=== PATIENT | female | born 1950 | race Caucasian/White ===

== ENCOUNTER 2023-10-25 07:46 | Outpatient (OUT) | payer MEDICARE, SELFPAY ==
--- NOTE | 2023-10-25 07:49 | XR_ITS ---
[address] [address] Patient Name: ROMMEL MARIEE MRN: [id number] date: 1950 Sex: F Assigned Patient Location: [facility] Current Patient Location: [facility] Accession/Order Number: [id number] Exam Date: 10/25/2023 08:05 Report Date: 10/25/2023 08:33 At the request of: VENTURA PEARSON Procedure: XR DEXA axial skeleton EXAMINATION: XR DEXA axial skeleton, 10/25/2023 8:05 AM EST HISTORY: Osteopenia M85.88 COMPARISON: 2020, 2016, 2007. TECHNIQUE: Dual-energy X-ray absorptiometry (DEXA) bone density study performed for the axial skeleton. HISTORY: Osteopenia M85.88 FINDINGS: Bone mineral density AP spine L1-L4 measures 0.940 g/sq cm. T score -2.0. WHO classification: Osteopenia. Bone mineral density of the femurs measures 0.912 g/sq cm. T score -0.8. Endotracheal classification: Normal XR/XR DEXA axial skeleton IMPRESSION: Osteopenia. Moderate fracture risk Electronically authenticated by: EMMA MOSLEY Date: 10/25/2023 08:33
--- NOTE | 2023-10-25 08:15 | MM_ITS ---
Patient Name: ROMMEL MARIEE MR#: [id number] : 1950 Exam Date: 10/25/2023 Ordering Doctor: DR Sunday Hayes D.O. RADIOLOGY REPORT PROCEDURE: MM TOMOSYNTHESIS SCREENING BI COMPARISON: MG MAMM SCREEN 3D NATALIE CAD, 10/23/2021. MG MAMM SCREEN 3D NATALIE CAD, 10/24/2022. INDICATIONS: Screening Calculator Name NCI Breast Cancer Risk Assessment Tool 5 Year Breast Cancer Risk 1.40% Lifetime Breast Cancer Risk 4.00% Personal Breast Cancer No Personal Ovarian Cancer No Treatments None Family Cancers None LOCATION: [facility] BREAST COMPOSITION: Scattered areas fibroglandular density. FINDINGS: DIAGNOSTIC CATEGORY 1--NEGATIVE. NO CHANGE FROM COMPARISON ASSESSMENT. RIGHT BREAST: No significant suspicious finding. LEFT BREAST: No significant suspicious finding. RECOMMENDATIONS: ROUTINE MAMMOGRAM AND CLINICAL EVALUATION IN 12 MONTHS. PLEASE NOTE: A NORMAL MAMMOGRAM DOES NOT EXCLUDE THE POSSIBILITY OF BREAST CANCER. A CLINICALLY SUSPICIOUS PALPABLE LUMP SHOULD BE BIOPSIED. Dictated by: Xavier Dukes MD on 10/25/2023 at 08:38 Approved by: Xavier Dukes MD on 10/25/2023 at 08:39
== END 2023-10-25 07:47 | disposition home or self-care (01) ==
LOC: MAMMO 07:46
PROVIDERS: PCP Internal Medicine; Visit Provider Internal Medicine
DX: Z12.31 Encounter for screening mammogram for malignant neoplasm of breast (principal); M85.88 Other specified disorders of bone density and structure, other site; M85.80 Other specified disorders of bone density and structure, unspecified site
CPT/HCPCS: 77063; 77067; 77080

== ENCOUNTER 2024-10-26 09:02 | Outpatient (OUT) | payer MEDICARE, SELFPAY ==
--- NOTE | 2024-10-26 09:06 | MM_ITS ---
Patient Name: ROMMEL MARIEE MR#: [id number] : 1950 Exam Date: 10/26/2024 Ordering Doctor: DR Sunday Hayes D.O. RADIOLOGY REPORT PROCEDURE: MM TOMOSYNTHESIS SCREENING BI COMPARISON: MM TOMOSYNTHESIS SCREENING BI, 10/25/2023. MG MAMM SCREEN 3D NATALIE CAD, 10/24/2022. INDICATIONS: Screening Calculator Name NCI Breast Cancer Risk Assessment Tool 5 Year Breast Cancer Risk 1.40% Lifetime Breast Cancer Risk 3.80% Personal Breast Cancer No Personal Ovarian Cancer No Treatments None Family Cancers None LOCATION: [facility] BREAST COMPOSITION: There are scattered areas of fibroglandular density. FINDINGS: DIAGNOSTIC CATEGORY 1--NEGATIVE. NO CHANGE FROM COMPARISON ASSESSMENT. Scattered benign-appearing calcifications are present. Scattered benign-appearing lymph nodes are present. RIGHT BREAST: No significant suspicious finding. LEFT BREAST: No significant suspicious finding. RECOMMENDATIONS: ROUTINE MAMMOGRAM AND CLINICAL EVALUATION IN 12 MONTHS. PLEASE NOTE: A NORMAL MAMMOGRAM DOES NOT EXCLUDE THE POSSIBILITY OF BREAST CANCER. A CLINICALLY SUSPICIOUS PALPABLE LUMP SHOULD BE BIOPSIED. Dictated by: Xavier Dukes MD on 10/26/2024 at 10:21 Approved by: Xavier Dukes MD on 10/26/2024 at 10:22
--- OUTSIDE RECORDS SUMMARY | 2024-10-26 09:18 | XMS_ITS | CCD ---
Author Organization [facility] Care Team Providers Care Certified Physician'S Assistant Name Role Phone Sunday Hayes DO Primary Care Provider SUNDAY HAYES Primary Care Unavailable ANTONIO IQBAL Attending Unavailable ANTONIO IQBAL Admitting Unavailable MISC, DR ALVAREZ Attending Unavailable MISC, DR ALVAREZ Consulting Unavailable LILI, DR WHITEHEAD Primary Care Unavailable MISC, DR ALVAREZ Admitting Unavailable REQUEST, DR BURRELL LISTED Consulting Unavaila ble LILI, DR WHITEHEAD Attending Unavailable LILI, DR WHITEHEAD Consulting Unavailable LILI, DR WHITEHEAD Primary Care Unavailable LILI, DR WHITEHEAD Admitting Unavailable ZIEBER, DR OLEGARIO Flores Consulting Unavailable Sunday Hayes Unavailable Medications Current Medications Medication Drug Class(es) Dates Sig (Normalized) Sig (Original) acetaminophen 325 mg / HYDROcodone bitartrate 5 mg oral tablet (1 source) Opioid Agonist Start: 08-20-2022 End: 08-23-2022 HYDROcodone-bailee taminophen (NORCO) 5-325 MG per tablet Indications: Post-op pain Take 1 tablet by mouth every 6 hours as needed for Pain for up to 3 days. Intended supply: 3 days. Take lowest dose possible to manage pain 10 tablet 0 08/20/2022 08/23/2022 Active amLODIPine 5 mg oral tablet (2 sources) Dihydropyridine Calcium Channel Jaime Start: 09-09-2023 take 1 tablet by mouth every twenty-four hours amLODIPine Besylate 5 MG 1 tablet Orally Once a day for 30 days Aug, Active ascorbic acid 500 mg oral capsule (1 source) Vitamin C take 1 capsule by mouth once daily Ascorbic Acid (VITAMIN C) 500 MG CAPS Take 500 mg by mouth Daily 0 Active calcium carbonate 1500 mg / cholecalciferol 200 unt oral tablet (1 source) Vitamin D Calcium Carbonate+Vitam in D 600-200 MG-UNIT TABS Take 600 mg by mouth Daily 0 Active Multiple Vitamins-Minerals (CENTRUM SILVER PO) (1 source) Multiple Vitamins-Minera ls (CENTRUM SILVER PO) Take by mouth daily 0 Active 1000 ml sodium chloride 9 mg/ml injection (1 source) Start: 08-20-2022 0.9 % sodium chloride infusion Zinc (1 source) zinc 50 MG CAPS Take by mouth daily 0 Active Completed/Discontinued Medications Medication Drug Class(es) Dates Sig (Normalized) Sig (Original) azithromycin 250 mg oral tablet (3 sources) Macrolide Antimicrobial Start: 01-04-2023 Azithromycin 250 MG as directed Orally daily for 5 days Dec, Not-Taking/PRN Problems Active Problems Problem Classification Problem Date Documented Date Episodic/Chronic Essential hypertension (2 sources) Essential hypertension; Translations: [Essential (primary) hypertension] Chronic Menopausal disorders (3 sources) Decreased estrogen level; Translations: [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 Other and unspecified benign neoplasm (3 sources) Lipoma of left upper limb; Translations: [Benign lipomatous neoplasm of skin and subcutaneous tissue of left arm] Episodic Other nervous system disorders (1 source) Postoperative pain ; Translations: [Other acute postprocedural pain] Episodic Other nervous system disorders (1 source) Other acute postprocedural pain; Translations: [Other acute postprocedural pain] Onset: 08-20-2022 Episodic Other screening for suspected conditions (not mental disorders or infectious disease) (4 sources) Encounter for screening mammogram for malignant neoplasm of breast; Translations: [ENC SCR MAMMO MALIG NEOPLASM BREAST] Onset: 10-24-2022 Episodic Other skin disorders (3 sources) Other hypertrophic disorders of the skin; Translations: [Inflamed skin tag] Episodic Other upper respiratory disease (3 sources) Allergic rhinitis due to pollen; Translations: [Allergic rhinitis due to pollen] Chronic Other upper respiratory infections (1 source) Acute maxillary sinusitis, unspecified Episodic Residual codes; unclassified (3 sources) Asymptomatic menopausal state; Translations: [Menopause] Episodic Skin and subcutaneous tissue infections (2 sources) Cellulitis and abscess of upper limb; Translations: [Cellulitis of unspecified part of limb] Onset: 08-20-2022 Episodic Viral infection (3 sources) Herpes zoster with complication; Translations: [Zoster with other complications] Episodic Past or Other Problems Problem Classification Problem Date Documented Da te Episodic/Chronic Viral infection (3 sources) Disease caused by 2019-nCoV; Translations: [COVID-19] Results Test Name Value Interpretation Reference Range Facil ity MG MAMM SCREEN 3D NATALIE CADon 10-24-2022 MG MAMM SCREEN 3D NATALIE CAD Patient: HEATHER VALDEZ Exam Date: 10/24/2022 : 1950 Gender:F Ordering : DR SUNDAY HAYES D.O. Admission #: [id number] Family : Order #: [id number] CLICK HERE TO VIEW EXAM RADIOLOGY REPORT PROCEDURE: MAMMOGRAM SCREENING 3D BILATERAL CAD COMPARISON: MG MAMM SCREEN 3D NATALIE CAD, 10/23/2021. MG MAMM SCREEN NATALIE W CAD, 10/21/2020. MG MAMM SCREEN NATALIE W CAD, 09/08/2019. DIGITIZED_MAMMO, 12/01/2008. INDICATIONS: Screening mammography Calculator Name NCI Breast Cancer Risk Assessment Tool 5 Year Breast Cancer Risk 2.20% Lifetime Breast Cancer Risk 6.30% Personal Breast Cancer No Personal Ovarian Cancer No Treatments None Family Cancers None LOCATION: [facility] BREAST COMPOSITION: Scattered areas fibroglandular density. FINDINGS: DIAGNOSTIC CATEGORY 1--NEGATIVE. RIGHT BREAST: No significant suspicious finding. No significant change has occurred. LEFT BREAST: No significant suspicious finding. No significant change has occurred. RECOMMENDATIONS: ROUTINE MAMMOGRAM AND CLINICAL EVALUATION IN 12 MONTHS. PLEASE NOTE: A NORMAL MAMMOGRAM DOES NOT EXCLUDE THE POSSIBILITY OF BREAST CANCER. A CLINICALLY SUSPICIOUS PALPABLE LUMP SHOULD BE BIOPSIED. Dictated by: Olegario Campa M.D. on 10/24/2022 at 09:47 Approved by: Olegario Campa M.D. on 10/24/2022 at 09:56 Normal [facility] SURGICALon 08-20-2022 SURGICAL [facility] HEATHER VALDEZ [id number] Assoc. Page 1 of [address] [place] [address] PROC: 08/20/2022 [facility] RECV: 08/20/[address] RPTD: 08/22/2022 [place] [address] [facility] ACCT: [id number] SEX: F : 1950 AGE: 72 Y PATHOLOGY REPORT ATTN: ANTONIO IQBAL REQ: ANTONIO IQBAL Copies To: SUNDAY HAYES Clinical Information: CELLULITIS OF ANTECUBITAL FOSSA FINAL DIAGNOSIS: Soft tissue, left antecubital mass, excision: Lipoma. Specimen: SOFT TISSUE, LARGE MASS, LEFT ANTECUBITAL FOSSA Gross Examination: The container is labeled Heather Valdez, excision, large mass, left antecubital. Received in formalin is a shaggy fragment of unoriented yellow adipose tissue measuring 7.5 x 5 x 2.7 cm. Sections through the specimen reveal a yellow fatty cut surface. There are no suspicious areas of hemorrhage or necrosis. Senior Svp sections are submitted in two cassettes. ss. PCF/DKR:[id number] Microscopic Examination: Microscopic examination performed. [id number] BECKY LAYNE M.D., F.C.A.P [facility]/ [facility] Printed on: 08/22/[address] [place] [id number] Original print date: 08/22/2022 Normal [facility] CBC AUTO DIFFon 08-01-2022 BASO # 0.0 103/ul Normal 0.0-0.1 [facility] Comment on above: Performed By: #### C BC #### [facility] [address] [place] [address] Dr. Viry Frederick Basophils/100 WBC (Bld) 0.6 % Normal 0.2-2.0 [facility] Comment on above: Performed By: #### C BC #### [facility] [address] [place] [address] Dr. Viry Frederick EO # 0.1 103/ul Normal 0.0-0.7 [facility] Comment on above: Performed By: #### C BC #### [facility] [address] [place] [address] Dr. Viry Frederick Eosinophils/100 WBC (Bld) 2.6 % Normal 0.9-7.0 [facility] Comment on above: Performed By: #### C BC #### [facility] [address] [place] [address] Dr. Viry Frederick Erythrocyte distribution width (RBC) [Ratio] 12.4 % Normal 11.0-15.0 [facility] Comment on above: Performed By: #### C BC #### [facility] [address] [place] [address] Dr. Viry Frederick Hematocrit (Bld) [Volume fraction] 42.0 % Normal 36.0-48.0 [facility] Comment on above: Performed By: #### C BC #### [facility] [address] [place] [address] Dr. Viry Frederick Hemoglobin (Bld) [Mass/Vol] 13.5 g/dL Normal 12.0-16.0 [facility] Comment on above: Performed By: #### C BC #### [facility] [address] [place] [address] Dr. Viry Frederick IG # 0.01 10e3/ul Normal 0.00-0.03 [facility] Comment on above: Performed By: #### C BC #### [facility] [address] [place] [address] Dr. Viry Frederick IG % 0.2 % Normal 0.0-0.5 [facility] Comment on above: Performed By: #### C BC #### [facility] [address] [place] [address] Dr. Viry Frederick LYMPH # 1.5 103/ul Normal 1.2-3.8 [facility] Comment on above: Performed By: #### C BC #### [facility] [address] [place] [address] Dr. Viry Frederick Lymphocytes/100 WBC (Bld) 27.6 % Normal 20.5-60.0 [facility] Comment on above: Performed By: #### C BC #### [facility] [address] [place] [address] Dr. Viry Frederick MANUAL DIFF REQ NO Normal [facility] Comment on above: Performed By: #### C BC #### [facility] [address] [place] [address] Dr. Viry Frederick MCH (RBC) [Entitic mass] 29.9 pg Normal 26.7-34.0 [facility] Comment on above: Performed By: #### C BC #### [facility] [address] [place] [address] Dr. Viry Frederick MCHC (RBC) [Mass/Vol] 32.1 g/dL Normal 29.9-35.2 [facility] Comment on above: Performed By: #### C BC #### [facility] [address] [place] [address] Dr. Viry Frederick MCV (RBC) [Entitic vol] 93.1 fL Normal 81.0-99.0 [facility] Comment on above: Performed By: #### C BC #### [facility] [address] [place] [address] Dr. Viry Frederick MONO # 0.5 103/ul Normal 0.3-0.8 [facility] Comment on above: Performed By: #### C BC #### [facility] [address] [place] [address] Dr. Viry Frederick Monocytes/100 WBC (Bld) 8.3 % Normal 1.7-12.0 [facility] Comment on above: Performed By: #### C BC #### [facility] [address] [place] [address] Dr. Viry Frederick NEUT # 3.3 103/ul Normal 1.4-6.5 [facility] Comment on above: Performed By: #### C BC #### [facility] [address] [place] [address] Dr. Viry Frederick Neutrophils/100 WBC (Bld) 60.7 % Normal 43.0-75.0 [facility] Comment on above: Performed By: #### C BC #### [facility] [address] [place] [address] Dr. Viry Frederick Platelet mean volume (Bld) [Entitic vol] 9.6 fL Normal 9.5-13.5 [facility] Comment on above: Performed By: #### C BC #### [facility] [address] [place] [address] Dr. Viry Frederick PLT 282 103/ul Normal 150-450 [facility] Comment on above: Performed By: #### C BC #### [facility] [address] [place] [address] Dr. Viry Frederick RBC 4.51 106/ul Normal 4.20-5.40 [facility] Comment on above: Performed By: #### C BC #### [facility] [address] [place] [address] Dr. Viry Frederick WBC 5.4 103/ul Normal 4.0-11.0 [facility] Comment on above: Performed By: #### C BC #### [facility] [address] [place] [address] Dr. Viry Frederick PROF CHEM 8 (BAS METB)on Anion gap [Moles/Vol] 8.8 mmol/L Normal [facility] Comment on above: Performed By: #### B MP #### [facility] [address] [place] [address] Dr. Viry Frederick Calcium [Mass/Vol] 9.7 mg/dL Normal 8.5-10.1 [facility] Comment on above: Performed By: #### B MP #### [facility] [address] [place] [address] Dr. Viry Frederick Chloride [Moles/Vol] 103 mmol/L Normal 98-107 [facility] Comment on above: Performed By: #### B MP #### [facility] [address] [place] [address] Dr. Viry Frederick CO2 [Moles/Vol] 30.7 mmol/L Normal 21.0-32.0 [facility] Comment on above: Performed By: #### B MP #### [facility] [address] [place] [address] Dr. Viry Frederick Creatinine [Mass/Vol] 0.75 mg/dL Normal 0.55-1.02 [facility] Comment on above: Performed By: #### B MP #### [facility] [address] [place] [address] Dr. Viry Frederick EGFR-AF HONDURAN >60 Normal >=60 [facility] Comment on above: Performed By: #### B MP #### [facility] [address] [place] [address] Dr. Viry Frederick EGFR-NON AF HONDURAN >60 Normal >=60 [facility] Comment on above: Performed By: #### B MP #### [facility] [address] [address] [address] Viry Frederick Glucose [Mass/Vol] 113 mg/dL Critically high 74-106 [facility] Comment on above: Performed By: #### B MP #### [facility] [address] [address] [address] Viry Frederick Potassium [Moles/Vol] 4.5 mmol/L Normal 3.5-5.1 [facility] Comment on above: Performed By: #### B MP #### [facility] [address] [address] [address] Viry Frederick Sodium [Moles/Vol] 138 mmol/L Normal 136-145 [facility] Comment on above: Performed By: #### B MP #### [facility] [address] [address] [address] Viry Frederick Urea nitrogen [Mass/Vol] 20.0 mg/dL Critically high 7.0-18.0 [facility] Comment on above: Performed By: #### B MP #### [facility] [address] [address] [address] Viry Frederick Urea nitrogen/Creatinine [Mass ratio] 26.7 mg/mg Normal [facility] Comment on above: Performed By: #### B MP #### [facility] [address] [address] [address] Viry Frederick Vital Signs Date Time Vital Sign Value Performing Clinician Nishanti lity 08-20-2022 09:49-0500 Body temperature 97.59 [degF] Antonio Iqbal MD Work Phone: [facility] 08-20-2022 09:49-0500 Diastolic blood pressure 84 mm[Hg] Antonio Iqbal MD Work Phone: [facility] 08-20-2022 09:49-0500 Heart rate 73 /min Antonio Iqbal MD Work Phone: [facility] 11-07-2022 09:49-0500 Respiratory rate 16 /min Antonio Iqbal MD Work Phone: [employer] 08-20-2022 09:49-0500 SaO2% (BldA) [Mass fraction] 98 % Antonio Iqbal MD Work Phone: [employer] 08-20-2022 09:49-0500 Systolic blood pressure 175 mm[Hg] Antonio Iqbal MD Work Phone: [employer] 08-20-2022 07:48-0500 Body height 162.6 cm Anotnio Iqbal MD Work Phone: [employer] 08-20-2022 07:48-0500 Body mass index (BMI) [Ratio] 25.23 kg/m2 Antonio Iqbal MD Work Phone: [employer] 08-20-2022 07:48-0500 Body weight 66.68 kg Antonio Iqbal MD Work Phone: [employer] Encounters Encounter Date Encounter Type Care Provider Facility Start: 10-28-2023 End: 10-28-2023 ambulatory Sunday Hayes Other [facility] Other Start: 10-28-2023 Telephone encounter Sunday Morales [facility] Start: 09-25-2023 End: 09-25-2023 ambulatory Sunday Hayes Other [facility] Other Start: 09-25-2023 Tele[facility] Start: 01-04-2023 End: 01-04-2023 ambulatory Sunday Hayes Other [facility] Other Start: 01-04-2023 Office outpatient vi sit 15 minutes [facility] Start: 10-24-2022 End: 10-25-[address] SUNDAY HAYES Facility: Start: 08-20-2022 End: 08-20-2022 ambulatory SUNDAY HAYES [facility] Start: 08-20-2022 End: 08-20-2022 Subsequent hospital visit by physician Antonio Iqbal MD Work Phone: [facility] Comment on above: Post-op pain (Primar y Dx); Cellulitis of antecubital fossa Start: 08-05-2022 Encounter for other preprocedural examination DR DOCTOR SIMONS [facility] Start: 08-01-2022 End: 08-02-[address] DOCTOR SIMONS Facility:[facility] Start: 08-01-2022 End: 08-02-2022 Encounter for other preprocedural examination DR DOCTOR SIMONS Facility:[facility] Plan of Treatment Date Care Activity Detail Author Start: 08-20-2022 End: 08-20-2022 Adjt tis trnsfr/reargmt scalp/arm/leg 10 sq cm/< ARM LESION BIOPSY EXCISION Cellulitis of antecubital fossa 08/20/2022 8:53 AM [facility] Start: 05-14-2022 Influenza vaccination Flu vaccine (# 1) [facility] Start: 1971 DTaP/Tdap/Td vaccine (1 - Tdap) DTaP/Tdap/Td vaccine (1 - Tdap) [facility] Start: 01-25-1951 COVID-19 Vaccine (#1) COVID-19 Vacci ne (#1) [facility] Surgical Pathology Surgical Path ology Lab Routine Cellulitis of antecubital fossa Release Upon Ordering for 1 Occurrences starting 08/20/2022 [facility] Work Phone: Comment on above: Release Upon Orderin g for 1 Occurrences starting 08/20/2022 Immunizations Immunization Date Immunization Notes Care Provider Fa cili 08-01-2023 influenza, high dose seasonal, preservative-free Sunday Hayes Other [facility] Other 07-07-2020 influenza virus vaccine, split virus (incl. purified surface antigen) Sunday Hayes Other [facility] Other 07-29-2018 pneumococcal polysaccharide vaccine, 23 valent Sunday Hayes Other [facility] Other 07-22-2018 influenza virus vaccine, split virus (incl. purified surface antigen) Sunday Hayes Other [facility] Other 08-08-2017 pneumococcal conjuga te vaccine, 13 valent Sunday Hayes Other [facility] Other 07-17-2017 influenza virus vaccine, split virus (incl. purified surface antigen) Sunday Hayes Other [facility] Other 08-01-2016 influenza virus vaccine, split virus (incl. purified surface antigen) Sunday Hayes Other [facility] Other 07-30-2013 tetanus and diphther ia toxoids, adsorbed, preservative free, for adult use (5 Lf of tetanus toxoid and 2 Lf of diphtheria toxoid) Sunday Hayes Other [facility] Other Payers Date Payer Category Payer Medicare [id number] 1950 Unknown [id number] 1950 Unknown [id number] 1950 Unknown [id number] Social History Date Type Detail Facility Start: 08-13-2022 Tobacco smoking status ARIS Never smoked tobacco [facility] Phone: History of tobacco use Passive smoker [facility] Phone: Start: 08-13-2022 Tobacco use and exposure Smokeless tobacco non-user [facility] Phone: Start: 08-20-2022 Alcohol intake Lifetime non-d gifty (finding) [facility] Phone: Start: 1950 Sex Assigned At Not on file B ON [email or web address] Phone: Start: 08-10-2022 End: 08-20-2022 Exposure to SARS-CoV-2 (event) Not sure [facility] Phone: Sex Assigned At Sex Assigned At Bir th [facility] Other Evaluation note 01-04-2023 Note Date & Type Note Facility 01-04-2023 Evaluation note Encounter Date Diagnosis Assessment Notes Dec, Acute non-recurrent maxillary sinusitis (ICD-10 - J01.00) Instructed to use Robitussin or Mucinex for cough, saline or Flonase NS for congestion, Tylenol for pain and fever. [facility] Other History of Present illness Narrative 08-20-2022 Shalini Morgan RN - 08/20/2022 10:13 AM Catie Yates RN - 08/20/2022 9:49 AM Cheikh Mendenhall RN - 08/20/2022 9:37 AM Diane Hamm RN - 08/13/2022 2:10 PM EDT Note Date & Type Note Facility 08-20-2022 History of Present illness Narrative 1011: report received from June Cao. 1020: Discharge instructions reviewed with patient and family member. All questions were addressed and answered. Patient and family member verbalized understanding of discharge plan. Patient getting dressed. 1035: patient ambulated to discharge lobby in stable condition. Patient discharged home with family. 0949-Patient to Phase II via chair. Report received from Elly CAO. Patient awake and alert. Vitals obtained and stable. Respirations even and unlabored on room air. Patient denies pain and nausea. Left arm with bailee wrap. Drain coming from top of dressing. Drain compressed. No drainage noted. Family in room. Patient instructed safety person light used. 0952-patient provided with snack and drink. Denies needs. Call light in reach. 1011-Report given to Shalini Santoyo RN Dressing = benzoin and steries , gauze, abd, kerlix, bailee. Patient instructed not to eat or drink anything after midnight the day before surgery. Please bring list of medications with the dosages & when you take them. If you do not have a list bring the medications bottles with you. If having a MAC or general anesthetic you MUST have a driver salesman. Bring photo ID & insurance information. Leave jewelry (watch ,rings, peircings) & other valuables, including extra ford, at home. Wear comfortable clean clothing. When showering or bathing the night before & morning of surgery please use antibacterial soap. Follow any instructions from Dr. Iqbal office. documented in this encounter [facility] [email or web address] Phone: Hospital Discharge instructions 08-20-2022 Discharge Instructions Note Date & Type Note Facility 08-20-2022 Hospital Discharg e instructions June Yates RN - 08/20/2022 9:53 AM EST POST OPERATIVE INSTRUCTION SHEET SKIN TUMOR/LESION REMOVAL Activity: No strenuous activity for 48 hours No activity that stresses the suture closure/incision Regular diet; Unless operation of lip- then clear liquids for 48 hours (Sip from a cup: do not use a straw) ABSOLUTELY NO NICOTINE OF ANY TYPE Wound Care: Leave dressing on arm in place. Do not remove. Do not get wet. Empty drain twice a day and record output. Bring recording with you to follow up appointment. Limitations: No swimming, hot tub, sauna or soaking in a bathtub Prescriptions: Take exactly as prescribed Continue antibiotic as prescribed May take tylenol OR norco for pain Follow-Up:August 23 at 9:30 AM with Ann Farmer PA-C. Notify our office if you experience any of the following: Develop a fever (temperature is greater than 100.5F) Develop redness greater than 1 cm around incision or red streaks up extremity Have any excess bleeding/ increased drainage or swelling at the incision site *Note: Your pathology results will be reviewed with you at your scheduled follow-up appointment. *A prescription for [place] has been sent to your pharmacy documented in this encounter [employer] Phone: Evaluation note Note Date & Type Note Facility Evaluation note Diagnosis Post-op pain- Primary Other acute postoperative pain Cellulitis of antecubital fossa Cellulitis and abscess of upper arm and forearm documented in this encounter [facility] Phone: Evaluation note Note Date & Type Note Facility Evaluation note No Information [facility] Other History general Narrative - Reported Note Date & Type Note Facility History general Narrative - Reported Type Medical History Estrogen deficiency Medical History Lipoma of left upper extremity Medical History COVID Medical History Herpes zoster with other complic ation Medical History Acute allergic rhinitis due to p ollen Medical History Inflamed skin tag Medical History Menopause Surgical History EXCISION, SUBCUTANEO US TUMOR, UPPER ARM, 3 CM OR GREATER 2021 Surgical History COLONOSCOPY 2019 Hospitalization History SEE SURGICAL HX [facility] Other Summary Purpose Family History No Family History Records FoundNo Family History Records Found Advance Directives No Advanced Directives Records FoundNo Advanced Directives Records Found Additional Source Comments Reason for Visit (unrecogniz ed section and content) results Specialty Diagnoses / Procedures Referred By Danette t Referred To Contact Diagnoses Cellulitis of antecubital fossa Cellulitis of antecubital fossa [L03.119] Procedures [place] ADJ TISS XFER SCALP,EXTREM <10SQCM Excision Large Mass Left Antecubital Fossa Antoino Iqbal MD [address] [place] [address] [employer] [id number] [place] [place] [address] Referral ID Status Reason Start Date Expiration Date Visits Re quested Visits Authorized [id number] 1 1 Ordered Prescriptions (unrec ognized section and content) Prescription Sig Dispensed Refills Start Date End Da te HYDROcodone-acetaminophe n (NORCO) 5-325 MG per tabletIndications:Post-o p pain Take 1 tablet by mouth every 6 hours as needed for Pain for up to 3 days. Intended supply: 3 days. Take lowest dose possible to manage pain 10 tablet 0 08/20/2022 08/23/2022 Scheduled Active and Recently Administ ered Medications (unrecognized section and content) Medication Order 08/18/2022 08/19/2022 08/20/2022 ceFAZolin (ANCEF) 2000 mg in dextrose 5 % 50 mL IVPB (COMPLETED) 2,000 mg, IntraVENous, PRODUCT SAFETY COORDINATOR TO O.R., 1 dose, On Sat08/20/22 at 0800, Antimicrobial Indications: Surgical Prophylaxis 0915 (Given - Provid er: ROSETTE Alejo CRNA) Continuous Medication Order 08/18/2022 08/19/2022 08/20/2022 0.9 % sodium chloride infusion IntraVENous, at 100 mL/hr, CONTINUOUS, Starting on Sat08/20/22 at 0800 0903 (New Bag - Prov ider: ROSETTE Alejo CRNA)0939 (Stopped - Provider: ROSETTE Alejo CRNA) PRN Medication Order 08/18/2022 08/19/2022 08/20/2022 lidocaine-EPINEPHrine 1 %-1:[id number] injection (CANCELED) PRN, Starting on Sat08/20/22 at 0924, Until Sat08/20/22 at 0948, Intra-op 0924 (Given - Provid er: Antonio Iqbal MD) Care Teams (unrecognized sec tion and content) Certified Physician'S Assistant Relationship Specialty Start Date End Date Sunday Hayes DO [address] [place] [address] PCP - General Internal Medicine 08/20/22 INFORMATION SOURCE (unrecogn ized section and content) DATE CREATED AUTHOR 08/23/2022 [facility] DATE CREATED AUTHOR AUTHOR'S WENDY ATALEJANDRA 10/26/2022 [facility] FOR RECORDS PERTAINING TO PATIENTS WHO ARE OR HAVE BEEN ENROLLED IN A CHEMICAL DEPENDENCY/SUBSTANCEABUSE PROGRAM, SOME INFORMATION MAY BE OMITTED. This clinical summary was aggregated from multiple sources. Caution should be exercised in using it in the provision of clinical care. This summary normalizes information from multiple sources, and as a consequence, information in this document may materially change the coding, format and clinical context of patient data. In addition, data may be omitted in some cases. CLINICAL DECISIONS SHOULD BE BASED ON THE PRIMARY CLINICAL RECORDS. [facility]. provides no warranty or guarantee of the accuracy or completeness of information in this document.
== END 2024-10-26 09:03 | disposition home or self-care (01) ==
LOC: MAMMO 09:02
PROVIDERS: PCP Internal Medicine; Visit Provider Internal Medicine
DX: Z12.31 Encounter for screening mammogram for malignant neoplasm of breast (principal)
CPT/HCPCS: 77063; 77067